=== PATIENT | female | born 1990 | race Caucasian/White ===

== ENCOUNTER 2016-11-17 06:12 | Inpatient (IN) | payer BC ==
[~2016-11-17] VITALS: Ht 167.6 cm; Wt 71.0 kg
[2016-11-17] MEDS ORDERED: LIDOCAINE HCL 1% 50 ML VIAL INFIL PRN (06:30)
[2016-11-17] MEDS ORDERED: LACTATED RINGER'S 1000 ML IV SCH (06:30)
[2016-11-17] MEDS ORDERED: OXYTOCIN 30 UNITS 500ML PREMIX IV ONE (06:30)
[2016-11-17] MEDS ORDERED: NS 500 ML BOLUS IV PRN (06:30)
[2016-11-17] MEDS ORDERED: NS 1000 ML IV PRN (06:30)
[2016-11-17] MEDS ORDERED: LIDOCAINE HCL 1% 50 ML VIAL I-DERMAL PRN (06:30)
[2016-11-17] MEDS ORDERED: OXYTOCIN 30 UNITS/NS 500ML PREMIX IV SCH (06:30)
[2016-11-17] MEDS ORDERED: ONDANSETRON HCL 4 MG/2 ML VIAL IV PRN (06:30)
[2016-11-17] MEDS ORDERED: LACTATED RINGER'S 1000 ML BOLUS IV PRN (06:30)
[2016-11-17] MEDS ORDERED: MINERAL OIL 10 ML VIAL TOPICAL PRN (06:30)
[2016-11-17] MEDS ORDERED: CITRIC ACID-SODIUM CITRATE LIQ 30 ML UDC PO SCH (06:30)
[2016-11-17 07:10] LABS: AUTOMATED NEUTROPHIL # 6.3 TH/MM3 (1.8-7.7); BASOPHIL % 0.3 % (0.0-2.0); EOSINOPHIL % 0.4 % (0.0-4.0); HEMATOCRIT 35.2 % (35.0-46.0); HEMO FLAGS DIFF FINAL; LYMPH % 21.5 % (9.0-44.0); LYMPHOCYTE # 1.9 TH/MM3 (1.0-4.8); MEAN CELL VOLUME 88.2 FL (80.0-100.0); MEAN CORPUSCULAR HEMOGLOBIN 29.6 PG (27.0-34.0); MEAN CORPUSCULAR HGB CONC 33.6 % (32.0-36.0); MONO % 8.1 % (0.0-8.0); NEUT % 69.7 % (16.0-70.0); PLATELET COUNT 236 TH/MM3 (150-450); RED BLOOD COUNT 3.99 MIL/MM3 (4.00-5.30); RED CELL DISTRIBUTION WIDTH 12.6 % (11.6-17.2)
--- NOTE | 2016-11-17 08:04 | HHI.HP ---
HPI Chief Complaint term at 39 weeks with favorable cervix for arom and augmentation as needed Date Seen: Nov 17, 2016 Time Seen: 07:59 Travel History International Travel<30 Days: No Contact w/Intl Traveler<30Days: No Known Affected Area: No History of Present Illness HPI 26 yo mwf at 39 0/7 1-2 cm in office, 50%, soft and -1 well applied. Questionable peripheral cord insertion on ultrasound. No signs of pre eclampsia , no GDM, no PTL Not in labor surveillance reassuring. today /0/arom clear and damir moderately at time of arom. PNC with HOGA and uneventful. Weeks Gestation: 39 Para: 1 : 2 Last Menstrual Period: Feb 18, 2016 Miscarriage: 0 : 0 History Past Medical History Medical History: Denies Significant Hx Past Surgical History Surgical History: No Previous Surgery Family History Family History: Negative Social History Alcohol Use: No Tobacco Use: No Substance Abuse: No Allergies-Medications (Allergen,Severity, Reaction): Coded Allergies: azithromycin (Verified Allergy, Severe, 11/17/16) Review of Systems General / Constitutional: No: Fever, Weight Gain, Chills, Other Eyes: No: Diploplia, Blurred Vision, Visual changes, Pain, Photophobia HENT: No: Headaches, Vertigo, Lightheadedness Cardiovascular: No: Irregular Rhythm, Chest Pain or Discomfort, Palpitations, Tachycardia, Syncope, Varicosities, Edema, Cyanosis Respiratory: No: Cough, Short of Breath, Other Gastrointestinal: No: Nausea, Vomiting, Diarrhea Genitourinary: No: Decreased Urinary Output, Oliguria Musculoskeletal: No: Limited ROM, Weakness, Cramping, Edema, Pain Skin: No Rash, No Itching, No Dryness, No Lumps, No Change in Pigmentation, No Change in Nails, No Alopecia, No Lesions Neurologic: No: Weakness, Dizziness, Syncope, Focal Abnormalities, Coordination Problem, Headache, Slurred Speech, Seizures Psychiatric: No: Depression, Suicidal Ideations, Homicidal Ideation Endocrine: No: Heat Intolerance, Cold Intolerance, Polydipsia, Polyuria, Other Physical Exam Narrative GENERAL: Well-nourished, well-developed patient. SKIN: Warm and dry. HEAD: Normocephalic and atraumatic. EYES: No scleral icterus. No injection or drainage. ENT: No nasal drainage noted. Mucous membranes pink. Airway patent. NECK: Supple, trachea midline. No JVD. CARDIOVASCULAR: Regular rate and rhythm without murmurs, gallops, or rubs. RESPIRATORY: Breath sounds equal bilaterally. No accessory muscle use. BREASTS: Bilateral exam showed no masses , no retractions, no nipple discharge. ABDOMEN/GI: Abdomen soft, non-tender, bowel sounds present, no rebound, no guarding 35 cm (always measures small) 2cm/80-/0/ arom blood tinged well applied pelvis clinically adequate and proven to 7 9 EFW 7 1/2 EXTREMITIES: No cyanosis or edema. BACK: Nontender without obvious deformity. No CVA tenderness. NEUROLOGICAL: Awake and alert. Motor and sensory grossly within normal limits. Five out of 5 muscle strength in all muscle groups. Normal speech. Caprini VTE Risk Assessment Caprini VTE Risk Assessment: No/Low Risk (score <= 1) Caprini Risk Assessment Model Point Value = 1 Point Value = 2 Point Value = 3 Point Value = 5 Age 41-60 Minor surgery BMI > 25 kg/m2 Swollen legs Varicose veins or History of unexplained or recurrent spontaneous Oral contraceptives or hormone replacement Sepsis (< 1 month) Serious lung disease, including pneumonia (< 1 month) Abnormal pulmonary function Acute myocardial infarction Congestive heart failure (< 1 month) History of inflammatory bowel disease Medical patient at bed rest Age 61-74 Arthroscopic surgery Major open surgery (> 45 min) Laparoscopic surgery (> 45 min) Malignancy Confined to bed (> 72 hours) Immobilizing plaster cast Central venous access Age >= 75 History of VTE Family history of VTE Factor V Leiden Prothrombin [id number] Lupus anticoagulant Anticardiolipin antibodies Elevated serum homocysteine Heparin-induced thrombocytopenia Other congenital or acquired thrombophilia Stroke (< 1 month) Elective arthroplasty Hip, pelvis, or leg fracture Acute spinal cord injury (< 1 month) Prophylaxis Regimen Total Risk Factor Score Risk Level Prophylaxis Regimen 0-1 Low Early ambulation 2 Moderate Order ONE of the following: *Sequential Compression Device (SCD) *Heparin 5000 units SQ BID 3-4 Higher Order ONE of the following medications: *Heparin 5000 units SQ TID *Enoxaparin/Lovenox 40 mg SQ daily (WT < 150 kg, CrCl > 30 mL/min) *Enoxaparin/Lovenox 30 mg SQ daily (WT < 150 kg, CrCl > 10-29 mL/min) *Enoxaparin/Lovenox 30 mg SQ BID (WT < 150 kg, CrCl > 30 mL/min) AND/OR *Sequential Compression Device (SCD) 5 or more Highest Order ONE of the following medications: *Heparin 5000 units SQ TID (Preferred with Epidurals) *Enoxaparin/Lovenox 40 mg SQ daily (WT < 150 kg, CrCl > 30 mL/min) *Enoxaparin/Lovenox 30 mg SQ daily (WT < 150 kg, CrCl > 10-29 mL/min) *Enoxaparin/Lovenox 30 mg SQ BID (WT < 150 kg, CrCl > 30 mL/min) AND *Sequential Compression Device (SCD) Data Data Orders Orders Lactated Ringer's 1000 Ml Inj (Lr 1000 M (11/17/16 06:30) Lactated Ringer's 1000 Ml Inj (Lr 1000 M (11/17/16 06:30) Sodium Chlorid 0.9% 500 Ml Inj (Ns 500 M (11/17/16 06:30) Sodium Chlor 0.9% 1000 Ml Inj (Ns 1000 M (11/17/16 06:30) Lidocaine 1% Inj (50 Ml) (Xylocaine 1% I (11/17/16 06:30) Citric Acid-Sodium Citrate Liq (Bicitra (11/17/16 06:30) Ondansetron Inj (Zofran Inj) (11/17/16 06:30) Fentanyl Inj (Fentanyl Inj) (11/17/16 06:30) Fentanyl Inj (Fentanyl Inj) (11/17/16 06:30) Oxytocin 30 Units-500ml Premix (Pitocin (11/17/16 06:30) Lidocaine 1% Inj (50 Ml) (Xylocaine 1% I (11/17/16 06:30) Light Mineral Oil (Muri-Lube Oil) (11/17/16 06:30) ^ Non Stress Test (11/17/16 06:27) Response To Medication .Post New Med Administration, Reaction (11/17/16 06:27) ^ Discontinue Medication (11/17/16 06:27) Oxytocin 30 Units-500ml Premix (Pitocin (11/17/16 06:30) Admit To Inpatient (11/17/16 ) Vital Signs (Adult) .Per protocol (11/17/16 06:28) Activity Oob Ad Shelbi (11/17/16 06:28) Heart (11/17/16 06:28) Amnioinfusion (11/17/16 06:28) Urinary Catheter Management .ONCE (11/17/16 06:28) Diet Liquid (11/17/16 Breakfast) Complete Blood Count With Diff (11/17/16 06:28) Hold Clot (11/17/16 06:28) Abo/Rh Blood Type (11/17/16 06:28) Urinalysis - C+S If Indicated (11/17/16 06:28) Resp Oxygen Non Rebreathe Mask (11/17/16 ) ^ Epidural / Intrathecal Infus (11/17/16 06:28) Labs Laboratory Tests Test 11/17/16 06:45 White Blood Count 9.0 Red Blood Count 3.99 Hemoglobin 11.8 Hematocrit 35.2 Mean Corpuscular Volume 88.2 Mean Corpuscular Hemoglobin 29.6 Mean Corpuscular Hemoglobin Concent 33.6 Red Cell Distribution Width 12.6 Platelet Count 236 Mean Platelet Volume 7.9 Neutrophils (%) (Auto) 69.7 Lymphocytes (%) (Auto) 21.5 Monocytes (%) (Auto) 8.1 Eosinophils (%) (Auto) 0.4 Basophils (%) (Auto) 0.3 Neutrophils # (Auto) 6.3 Lymphocytes # (Auto) 1.9 Monocytes # (Auto) 0.7 Eosinophils # (Auto) 0.0 Basophils # (Auto) 0.0 CBC Comment DIFF FINAL Differential Comment Assessment/Plan Assessment and Plan term IUP with favorable bishops score and irregular ucs now with AROM augment as needed anticipate Lyn Casey MD Nov 17, 2016 08:04
[2016-11-17 12:02] LABS: BLOOD, URINE MOD (NEG); GLUCOSE,URINE NEG (NEG); KETONE, URINE NEG (NEG); NITRITE,URINE NEG (NEG); PH, URINE 7.5 (5.0-8.5); SQUAMOUS EPITHELIAL CELL URINE <1 /hpf (0-5); URINE COLOR LIGHT-YELLOW (YELLW/STRAW)
[2016-11-17 12:06] LABS: COMMENT (UR) CULT NOT INDICATED; CULTURE IF INDICATED CULT NOT INDICATED
[2016-11-17] MEDS ORDERED: MEASLES, MUMPS, RUBELLA VACCINE 0.5 ML VIAL SQ ONE (16:00)
[2016-11-17] MEDS ORDERED: DIPHTH/TETANUS/ACEL PERTUSSIS (BOOSTER) 0.5 ML VIAL/PFS IM ONE (16:00)
--- NOTE | 2016-11-17 19:55 | PD.LABORPN ---
Objective Vital Signs Patient reasonably comfortable with IV fentanyl and rotating hips on birthing ball feeling pressure as baby descends Objective 8/90%/0 CORA Weeks Gestation: 39 Gest Age Assessed Date: Nov 17, 2016 Gest Age Assessed Time: 19:53 Pt started active labor?: Yes Active labor start date: Nov 17, 2016 Active labor start time: 12:00 Medical induction of labor?: Yes Medical induction start date: Nov 17, 2016 Medical induction start time: 07:30 Artificial rupture of membrane: Yes Artificial ROM date: Nov 17, 2016 Artifical ROM time: 08:00 Assessment/Plan Assessment and Plan term IUP induction at 39 weeks questionable peripheral cord insertion proven to 7 1/2 pounds anticipate Lyn Fisher MD Nov 17, 2016 19:55
--- NOTE | 2016-11-17 21:59 | PD.OB.DELI ---
Weeks gestation: 39 Gest age assessed date: Nov 17, 2016 Gest age assessed time: 19:53 Pt started active labor?: Yes Active labor start date: Nov 17, 2016 Active labor start time: 12:00 Medical induction of labor?: Yes Medical induction start date: Nov 17, 2016 Medical induction start time: 07:30 Artificial rupture of membrane: Yes Artificial ROM date: Nov 17, 2016 Artifical ROM time: 08:00 Anesthesia: None Episiotomy: None Vaginal Delivery: Normal Presentation: Occiput anterior Nuchal Cord: None Delayed cord clamping (45 sec): Yes : Male Delivery date: Nov 17, 2016 Delivery time: 21:59 One Minute : 8 Five Minute : 9 Placenta: Spontaneous delivery Laceration: No lacerations Estimated blood loss: 250 Lyn Fisher MD Nov 17, 2016 21:59
[2016-11-17] MEDS ORDERED: BENZOCAINE 20% TOPICAL SPRAY 60 ML CAN TOPICAL PRN (22:00)
[2016-11-17] MEDS ORDERED: WITCH HAZEL 50%/GLYCERIN 12.5% 40 PAD JAR TOPICAL PRN (22:00)
[2016-11-17] MEDS ORDERED: DOCUSATE SODIUM 50 MG/SENNA 8.6 MG TAB PO PRN (22:00)
[2016-11-17] MEDS ORDERED: ONDANSETRON ODT 4 MG TAB PO PRN (22:00)
[2016-11-17] MEDS ORDERED: ALUMINUM/MAGNESIUM/SIMETH 30 ML CUP PO PRN (22:00)
[2016-11-17] MEDS ORDERED: ZOLPIDEM TARTRATE 5 MG TAB PO PRN (22:00)
[2016-11-17] MEDS ORDERED: SODIUM CHLORIDE 0.9% FLUSH 10 ML FLUSH IV FLUSH PRN (22:00)
[2016-11-17] MEDS ORDERED: OXYTOCIN 30 UNITS-500ML PREMIX 500 ML IV SCH (22:00)
[2016-11-17] MEDS ORDERED: ACETAMINOPHEN 325 MG TAB PO PRN (22:00)
[2016-11-18] MEDS: IBUPROFEN 600 MG TAB PO PRN ×3 (08:01→22:52)
--- NOTE | 2016-11-18 08:58 | HHI.OB ---
Subjective Post Day: 1 Remarks s/p uncomplicated , healthy male 7#7oz "Mahesh" no complaints, , no laceration Objective Objective Remarks GENERAL: Well-nourished, well-developed patient. CARDIOVASCULAR: Regular rate and rhythm without murmurs, gallops, or rubs. RESPIRATORY: Breath sounds equal bilaterally. No accessory muscle use. ABDOMEN/GI: Abdomen soft, non-tender. Fundus: Firm, non-tender at umbilicus. GENITOURINARY: Light bleeding. EXTREMITIES: No cyanosis or edema, non-tender, without signs of DVT. Medications and IVs Current Medications Medications (Trade) Dose Ordered Sig/Misa Route Start Time Stop Time Status Last Admin Lactated Ringer's 1,000 ml @ 125 mls/hr Q8H IV 11/17/16 06:30 11/17/16 07:04 Lactated Ringer's 1,000 ml @ 3,000 mls/hr BOLUS PRN IV 11/17/16 06:30 Sodium Chloride 500 ml @ 1,000 mls/hr BOLUS PRN IV 11/17/16 06:30 Sodium Chloride 1,000 ml @ 100 mls/hr Q10H PRN IV 11/17/16 06:30 (Bicitra Liq) 30 ml [employer] PO 11/17/16 06:30 11/20/16 06:29 (Zofran Inj) 4 mg Q6H PRN IV 11/17/16 06:30 (fentaNYL INJ) 50 mcg Q1H PRN IV PUSH 11/17/16 06:30 (fentaNYL INJ) 100 mcg Q1H PRN IV PUSH 11/17/16 06:30 11/17/16 18:52 (Muri-Lube Oil) 10 ml UNSCH PRN TOPICAL 11/17/16 06:30 Oxytocin 500 ml @ 0 mls/hr TITRATE IV 11/17/16 06:30 11/17/16 07:05 (NS Flush) 2 ml BID IV FLUSH 11/18/16 09:00 (NS Flush) 2 ml UNSCH PRN IV FLUSH 11/17/16 22:00 (Tylenol) 650 mg Q4H PRN PO 11/17/16 22:00 (Motrin) 600 mg Q6H PRN PO 11/17/16 22:00 11/18/16 08:01 (Americaine 20% Top Spr) 1 spray Q4H PRN TOPICAL 11/17/16 22:00 (Tucks Pads) 1 applic QID PRN TOPICAL 11/17/16 22:00 (Aixa-Colace) 2 tab Q12H PRN PO 11/17/16 22:00 (Ambien) 5 mg HS PRN PO 11/17/16 22:00 (Mag-Al Plus Susp Liq) 15 ml Q8H PRN PO 11/17/16 22:00 (Zofran Odt) 4 mg Q6H PRN PO 11/17/16 22:00 Assessment/Plan Assessment and Plan PPD#1 routine supportive care infant <12h, not yet cleared for circ, will plan prior to d/c if cleared anticipate d/c to home tmrw Discharge Planning routine, 11/19/16 Griselda Mckeon MD Nov 18, 2016 08:58
[2016-11-18] MEDS ORDERED: SODIUM CHLORIDE 0.9% FLUSH 10 ML FLUSH IV FLUSH SCH (09:00)
[2016-11-19] MEDS ORDERED: IBUP-232 PO (08:21)
--- NOTE | 2016-11-19 08:22 | HHI.DCPOC ---
Discharge Care Plan Diagnosis: (1) (spontaneous vaginal delivery) Your Health Problems Are: Vaginal delivery Report Symptoms to Your Doctor -Temperature above 100.5 degrees -Redness, of incision or excessive or foul smelling drainage -Unusual pain or calf pain -Increased vaginal bleeding -Painful or difficulty urinating -Feelings of extreme sadness or anxiety after 2 weeks Goals to Promote Your Health * To prevent worsening of your condition and complications * To maintain your health at the optimal level Directions to Meet Your Goals Take your medications as prescribed Follow your dietary instruction Follow activity as directed Ensure plenty of rest for recovery Drink fluids for hydration Keep your appointments as scheduled Take your immunizations and boosters as scheduled If your symptoms worsen call your PCP, if no PCP go to Urgent Care Center or Emergency Room Smoking is Dangerous to Your Health. Avoid second hand smoke Call the 24-hour crisis hotline for domestic abuse at Abril Whitten MD Nov 19, 2016 08:22
--- NOTE | 2016-11-19 08:24 | HHI.OB ---
Subjective Post Day: 2 Remarks doing well Objective Objective Remarks GENERAL: Well-nourished, well-developed patient. CARDIOVASCULAR: Regular rate and rhythm without murmurs, gallops, or rubs. RESPIRATORY: Breath sounds equal bilaterally. No accessory muscle use. ABDOMEN/GI: Abdomen soft, non-tender. Fundus: Firm, non-tender at umbilicus. GENITOURINARY: Light bleeding. EXTREMITIES: No cyanosis or edema, non-tender, without signs of DVT. Medications and IVs Current Medications Medications (Trade) Dose Ordered Sig/Misa Route Start Time Stop Time Status Last Admin Lactated Ringer's 1,000 ml @ 125 mls/hr Q8H IV 11/17/16 06:30 11/17/16 07:04 Lactated Ringer's 1,000 ml @ 3,000 mls/hr BOLUS PRN IV 11/17/16 06:30 Sodium Chloride 500 ml @ 1,000 mls/hr BOLUS PRN IV 11/17/16 06:30 Sodium Chloride 1,000 ml @ 100 mls/hr Q10H PRN IV 11/17/16 06:30 (Bicitra Liq) 30 ml [employer] SYSTEM ANALYST PO 11/17/16 06:30 11/20/16 06:29 (Zofran Inj) 4 mg Q6H PRN IV 11/17/16 06:30 (fentaNYL INJ) 50 mcg Q1H PRN IV PUSH 11/17/16 06:30 (fentaNYL INJ) 100 mcg Q1H PRN IV PUSH 11/17/16 06:30 11/17/16 18:52 (Muri-Lube Oil) 10 ml UNSCH PRN TOPICAL 11/17/16 06:30 Oxytocin 500 ml @ 0 mls/hr TITRATE IV 11/17/16 06:30 11/17/16 07:05 (NS Flush) 2 ml BID IV FLUSH 11/18/16 09:00 (NS Flush) 2 ml UNSCH PRN IV FLUSH 11/17/16 22:00 (Tylenol) 650 mg Q4H PRN PO 11/17/16 22:00 (Motrin) 600 mg Q6H PRN PO 11/17/16 22:00 11/18/16 22:52 (Americaine 20% Top Spr) 1 spray Q4H PRN TOPICAL 11/17/16 22:00 (Tucks Pads) 1 applic QID PRN TOPICAL 11/17/16 22:00 (Aixa-Colace) 2 tab Q12H PRN PO 11/17/16 22:00 (Ambien) 5 mg HS PRN PO 11/17/16 22:00 (Mag-Al Plus Susp Liq) 15 ml Q8H PRN PO 11/17/16 22:00 (Zofran Odt) 4 mg Q6H PRN PO 11/17/16 22:00 Assessment/Plan Assessment and Plan PPD#2 routine supportive care circ today anticipate d/c to home tmrw Discharge Planning routine, 11/19/16 Abril Whitetn MD Nov 19, 2016 08:24
[2016-11-19 08:30] VITALS: BP 101/65; PULSE 79; RESP 16; TEMP 97.9
[2016-11-19] MEDS: IBUPROFEN 600 MG TAB PO PRN (09:13)
== END 2016-11-19 16:06 | disposition home or self-care (01) | DRG 775 ==
LOC: H2EB 06:12 → H1EA 11-18
PROVIDERS: ADMIT Obstetrics & Gynecology; ATTEND Obstetrics & Gynecology
PROC: 10E0XZZ Delivery of Products of Conception, External Approach (ICD-10-PCS; principal; 2016-11-17)
DX: O80 Encounter for full-term uncomplicated delivery (principal); Z37.0 Single live birth; Z3A.39 39 weeks gestation of pregnancy
CPT/HCPCS: 59025; 81001; 85025; 86900; 86901; J2590; J3010; J7120

== ENCOUNTER 2017-01-28 08:43 | Observation (INO) | payer BC, OTHER ==
[2017-01-28] VITALS (11 sets, daily range): BP systolic 101–127; BP diastolic 56–77; PULSE 66–93; RESP 16–18; TEMP 98.1–98.2; O2SAT 97–100
[~2017-01-28] VITALS: Ht 167.6 cm; Wt 62.4 kg
[~2017-01-28 08:43] MED LIST: IBUP-232 PO
[2017-01-28] MEDS ORDERED: SODIUM CHLOR 0.9% 1000 ML INJ 1,000 ML IV ONE ×2 (09:00→09:15)
[2017-01-28] MEDS ORDERED: IOHEXOL 350 MG/ML 10 ML VIAL (for RAD DIAG) IVCONTRAST ONE (09:05)
[2017-01-28 09:08] LABS: AUTOMATED NEUTROPHIL # 2.8 TH/MM3 (1.8-7.7); BASOPHIL % 0.6 % (0.0-2.0); EOSINOPHIL % 0.8 % (0.0-4.0); HEMATOCRIT 39.4 % (35.0-46.0); HEMO FLAGS DIFF FINAL; LYMPH % 34.7 % (9.0-44.0); LYMPHOCYTE # 1.6 TH/MM3 (1.0-4.8); MEAN CELL VOLUME 83.4 FL (80.0-100.0); MEAN CORPUSCULAR HEMOGLOBIN 28.2 PG (27.0-34.0); MEAN CORPUSCULAR HGB CONC 33.8 % (32.0-36.0); MONO % 7.6 % (0.0-8.0); NEUT % 56.3 % (16.0-70.0); PLATELET COUNT 265 TH/MM3 (150-450); RED BLOOD COUNT 4.72 MIL/MM3 (4.00-5.30); RED CELL DISTRIBUTION WIDTH 12.7 % (11.6-17.2); WHITE BLOOD COUNT 4.8 TH/MM3 (4.0-11.0)
[2017-01-28] MEDS ORDERED: SODIUM CHLOR 0.9% 1000 ML INJ 300 ML IV ONE ×2 (09:15→09:30)
--- NOTE | 2017-01-28 09:18 | RADRPT ---
EXAM DATE/TIME: 01/28/2017 09:00 [facility] COMPARISON: No previous studies available for comparison. INDICATIONS : Stroke alert. Left facial droop, left arm numbness and right sided headache. RADIATION DOSE: 64.08 CTDIvol (mGy) This report was called by Dr. Mccormick to Dr. Garcia at 0915 hours. MEDICAL HISTORY : None SURGICAL HISTORY : None. ENCOUNTER: Initial ACUITY: 1 day PAIN SCALE: 2/10 LOCATION: Right cranial TECHNIQUE: Multiple contiguous axial images were obtained of the head. Using automated exposure control and adj ustment of the mA and/or kV according to patient size, radiation dose was kept as low as reasonably a chievable to obtain optimal diagnostic quality images. DICOM format image data is available electro nically for review and comparison. FINDINGS: CEREBRUM: The ventricles are normal for age. No evidence of midline shift, mass lesion, hemorrhage or acute in farction. No extra-axial fluid collections are seen. POSTERIOR FOSSA: The cerebellum and brainstem are intact. The 4th ventricle is midline. The cerebellopontine angle i s unremarkable. EXTRACRANIAL: The visualized portion of the orbits is intact. SKULL: The calvaria is intact. No evidence of skull fracture. CONCLUSION: Unremarkable noncontrast CT.. Onel Mccormick MD on January 28, 2017 at 9:13 Board Certified Radiologist. This report was verified electronically.
[2017-01-28 09:20] LABS: APTT (PATIENT) 26.1 SEC (24.3-30.1); BLOOD UREA NITROGEN 15 MG/DL (7-18); CHLORIDE 106 MEQ/L (98-107); GLOMERULAR FILTRATION RATE 102 ML/MIN (>89); PROTHROMBIN TIME - PATIENT 10.6 SEC (9.8-11.6); SODIUM (NA) 142 MEQ/L (136-145)
--- NOTE | 2017-01-28 09:20 | PD ---
HPI Chief Complaint: Stroke Alert Time Seen by Provider: 09:00 Travel History International Travel<30 days: No Contact w/Intl Traveler<30days: No Traveled to known affect area: No History of Present Illness HPI This 27-year-old female says she woke up at 720 this morning. She developed some numbness in the left hand and then the left side of the cheek became numb. The numbness extended up to the forearm. His symptoms then resolved. However the numbness came back and her hand and she developed some headache on the right side. She said she had a similar episode about 12 years ago which was associated with slurred speech. She is not sure what side was not. At that time she was told it was related to migraine headache. She did not suffer from frequent headaches. She is having a right-sided throbbing headache now. She had a baby 2 months ago. [facility] Past Medical History Headaches: Yes ?: Not LMP: 01/2016-pt is breast feeding Social History Alcohol Use: No Tobacco Use: No Allergies-Medications (Allergen,Severity, Reaction): Coded Allergies: azithromycin (Verified Allergy, Severe, 01/28/17) Reported Meds & Prescriptions Reported Meds & Active Scripts Active No Active Prescriptions or Reported Medications Review of Systems General / Constitutional: No: Fever Eyes: Positive: Visual changes, No: Diploplia HENT: Positive: Headaches Cardiovascular: No: Chest Pain or Discomfort, Palpitations Respiratory: No: Cough, Shortness of Breath Gastrointestinal: No: Nausea, Vomiting Genitourinary: No: Urgency, Frequency Musculoskeletal: No: Myalgias, Arthralgias Skin: No Rash Neurologic: Positive: Sensory Disturbance Endocrine: No: Heat Intolerance Hematologic/Lymphatic: No: Easy Bruising Physical Exam Narrative GENERAL: Well-developed female SKIN: Focused skin assessment warm/dry. HEAD: Atraumatic. Normocephalic. EYES: Pupils equal and round. No scleral icterus. No injection or drainage. ENT: No nasal bleeding or discharge. Mucous membranes pink and moist. NECK: Trachea midline. No JVD. CARDIOVASCULAR: Regular rate and rhythm. No murmur appreciated. RESPIRATORY: No accessory muscle use. Clear to auscultation. Breath sounds equal bilaterally. GASTROINTESTINAL: Abdomen soft, non-tender, nondistended. Hepatic and splenic margins not palpable. MUSCULOSKELETAL: No obvious deformities. No clubbing. No cyanosis. No edema. No objective sensory deficit is noted NEUROLOGICAL: Awake and alert. No obvious cranial nerve deficits. Motor grossly within normal limits. Normal speech. PSYCHIATRIC: Appropriate mood and affect; insight and judgment normal. Data Data Last Documented VS Vital Signs Date Time Temp Pulse Resp B/P (MAP) Pulse Ox O2 Delivery O2 Flow Rate FiO2 01/28/17 09:35 73 16 121/77 (92) 100 Room Air 01/28/17 08:55 98.2 Orders Orders Cath For Specimen (01/28/17 09:00) Neuro Checks Q2HX12,Q4H (01/28/17 09:00) Nursing Bedside Swallow Assess .ONCE (01/28/17 09:00) Activity Bed Rest (01/28/17 09:00) Diet Npo (01/28/17 Breakfast) Prothrombin Time / Inr (Pt) (01/28/17 09:00) Act Partial Throm Time (Ptt) (01/28/17 09:00) Complete Blood Count With Diff (01/28/17 09:) Basic Metabolic Panel (Bmp) (01/28/17 09:00) Fibrinogen (01/28/17 09:00) Creatine Kinase (Cpk) (01/28/17 09:00) Troponin I (01/28/17 09:00) Ua Includes Microscopic (01/28/17 09:00) Drug Screen, Random Urine (01/28/17 09:00) Type And Screen (01/28/17 09:00) Ct Brain W/O Iv Contrast(Rout) (01/28/17 ) Cta Brain W Iv Contrast W 3d (01/28/17 09:00) Cta Neck W Iv Contrast W 3d (01/28/17 09:00) Electrocardiogram (01/28/17 ) Beta Hcg (Quant/Titer) (01/28/17 09:00) Consult Neurology (01/28/17 09:00) Sodium Chlor 0.9% 1000 Ml Inj (Ns 1000 M (01/28/17 09:00) Blood Glucose (01/28/17 09:00) Ecg Monitoring (01/28/17 09:00) Iv Access Insert/Monitor (01/28/17 09:00) NPO (01/28/17 09:00) Oximetry (01/28/17 09:00) Oxygen Administration (01/28/17 09:00) Resp Oxygen Jagjit C Titrat 1-4 L (01/28/17 09:00) Sodium Chlor 0.9% 1000 Ml Inj (Ns 1000 M (01/28/17 09:15) Aspirin (Aspirin) (01/28/17 09:30) Head Of Bed (01/28/17 09:20) Aspirin (Aspirin) (01/28/17 09:30) Sodium Chlor 0.9% 1000 Ml Inj (Ns 1000 M (01/28/17 09:30) Iohexol 350 Inj (Omnipaque 350 Inj) (01/28/17 09:05) (Hub Use Only)Inp Phy Cons/Ref (01/28/17 ) Acetaminophen (Tylenol) (01/28/17 10:00) Labs Laboratory Tests Test 01/28/17 09:00 White Blood Count 4.8 TH/MM3 Red Blood Count 4.72 MIL/MM3 Hemoglobin 13.3 GM/DL Hematocrit 39.4 % Mean Corpuscular Volume 83.4 FL Mean Corpuscular Hemoglobin 28.2 PG Mean Corpuscular Hemoglobin Concent 33.8 % Red Cell Distribution Width 12.7 % Platelet Count 265 TH/MM3 Mean Platelet Volume 7.2 FL Neutrophils (%) (Auto) 56.3 % Lymphocytes (%) (Auto) 34.7 % Monocytes (%) (Auto) 7.6 % Eosinophils (%) (Auto) 0.8 % Basophils (%) (Auto) 0.6 % Neutrophils # (Auto) 2.8 TH/MM3 Lymphocytes # (Auto) 1.6 TH/MM3 Monocytes # (Auto) 0.4 TH/MM3 Eosinophils # (Auto) 0.0 TH/MM3 Basophils # (Auto) 0.0 TH/MM3 CBC Comment DIFF FINAL Differential Comment Prothrombin Time 10.6 SEC Prothromb Time International Ratio 1.0 RATIO Activated Partial Thromboplast Time 26.1 SEC Blood Urea Nitrogen 15 MG/DL Creatinine 0.70 MG/DL Random Glucose 93 MG/DL Sodium Level 142 MEQ/L Potassium Level 4.0 MEQ/L Chloride Level 106 MEQ/L Estimat Glomerular Filtration Rate 102 ML/MIN MDM Medical Decision Making Medical Screen Exam Complete: Yes Emergency Medical Condition: Yes Medical Record Reviewed: Yes Differential Diagnosis Differential includes TIA, CVA, complicated migraine Narrative Course On arrival the patient had some persistent paresthesias of the left hand. A stroke alert was called. CT scan has been read as negative. She has been given aspirin and is being kept with head flat. On returning from CT the patient reports that she is having persistent right-sided headache and is also having some photophobia. Her numbness has resolved Scripts No Active Prescriptions or Reported Meds Mohamud Gilbert MD Jan 28, 2017 09:20
[2017-01-28] MEDS ORDERED: ASPIRIN 325 MG TAB PO ONE ×2 (09:30)
[2017-01-28] MEDS ORDERED: ACETAMINOPHEN 325 MG TAB PO ONE (10:00)
--- NOTE | 2017-01-28 10:04 | RADRPT ---
EXAM DATE/TIME: 01/28/2017 09:00 [facility] COMPARISON: No previous studies available for comparison. INDICATIONS : Stroke alert. Left facial droop, left arm numbness and right sided headache. IV CONTRAST: 85 cc Omnipaque 350 (iohexol) IV ; Cumulative dose for multiple exams. RADIATION DOSE: 42.24 CTDIvol (mGy) ; Combined studies MEDICAL HISTORY : None SURGICAL HISTORY : None. ENCOUNTER: Initial ACUITY: 1 day PAIN SCALE: 0/10 LOCATION: neck Elevated flow velocities and ICA/CCA ratios have been found to correlate with increased degrees of vessel stenosis, calculated as percentage of diameter relative to a normal segment of distal ICA/CCA. TECHNIQUE: Volumetric scanning was performed using a multirow detector CT scanner. The data was post processed with a variety of visualization algorithms including full-volume maximum intensity projection, multip lanar sliding thin-slab reformation, curved-planar reformation, and surface-rendering techniques. Us ing automated exposure control and adjustment of the mA and/or kV according to patient size, radiatio n dose was kept as low as reasonably achievable to obtain optimal diagnostic quality images. DICOM f ormat image data is available electronically for review and comparison. FINDINGS: AORTIC ARCH: There is a three-vessel origin of the great vessels from the aorta. No evidence of ostial narrowing. RIGHT CAROTID: The common carotid artery is intact. The carotid bulb has a normal configuration without ulceration o r narrowing. The internal carotid artery lumen is smooth without stenosis. The external carotid quita ry is intact. LEFT CAROTID: The common carotid artery is intact. The carotid bulb has a normal configuration without ulceration or narrowing. The internal carotid artery lumen is smooth without stenosis. The external carotid ar wendi is intact. VERTEBRALS: The vertebral arteries have a symmetric diameter. No stenotic lesions are seen. CONCLUSION: Unremarkable exam. Onel Mccormick MD on January 28, 2017 at 10:00 Board Certified Radiologist. This report was verified electronically.
[2017-01-28 10:14] LABS: BICARBONATE 24.2 MEQ/L (21.0-32.0)
[2017-01-28 10:17] LABS: ANION GAP 9 MEQ/L (5-15)
--- NOTE | 2017-01-28 10:20 | RADRPT ---
EXAM DATE/TIME: 01/28/2017 09:00 [facility] COMPARISON: No previous studies available for comparison. INDICATIONS : Stroke alert. Left facial droop, left arm numbness and right sided headache. IV CONTRAST: 85 cc Omnipaque 350 (iohexol) IV ; Cumulative dose for multiple exams. RADIATION DOSE: 42.24 CTDIvol (mGy) ; Combined studies MEDICAL HISTORY : None SURGICAL HISTORY : None. ENCOUNTER: Initial ACUITY: 1 day PAIN SCALE: 2/10 LOCATION: Right cranial TECHNIQUE: Volumetric scanning was performed using a multi-row detector CT scanner. The data was post processed with a variety of visualization algorithms including full volume maximum intensity projection, multi -planar sliding thin slab reformation, curved planar reformation, and surface rendering techniques. Using automated exposure control and adjustment of the mA and/or kV according to patient size, radiat ion dose was kept as low as reasonably achievable to obtain optimal diagnostic quality images. DICO M format image data is available electronically for review and comparison. FINDINGS: There is excellent visualization of the major intracranial arteries out to the second-order branch ve ssels. There is no evidence for aneurysm, vessel truncation or stenosis, and no evidence for vascula r malformation. CONCLUSION: Normal examination. Cristian Ramirez MD on January 28, 2017 at 10:03 Board Certified Radiologist. This report was verified electronically.
[2017-01-28 10:23] LABS: BETA HCG QUANT LESS THAN 1 MIU/ML (0-5); CREATINE KINASE 97 U/L (26-192)
[2017-01-28] MEDS ORDERED: SODIUM CHLOR 0.9% 1000 ML INJ 1,000 ML IV SCH (10:28)
[2017-01-28] MEDS ORDERED: DEXAMETHASONE SOD PHOS 20 MG/5 ML VIAL IV PUSH ONE (10:30)
[2017-01-28 10:42] LABS: GLUCOSE,URINE NEG (NEG); KETONE, URINE NEG (NEG); NITRITE,URINE NEG (NEG)
[2017-01-28 10:44] LABS: BLOOD, URINE TRACE (NEG); METHOD OF COLLECTION CATH; URINE COLOR STRAW (YELLW/STRAW)
[2017-01-28 10:46] LABS: SQUAMOUS EPITHELIAL CELL URINE 0-5 /hpf (0-5); WBC, URINE 15-19 /hpf (0-5)
--- NOTE | 2017-01-28 10:58 | MB ---
cc: ALLAN BALBUENA DATE OF CONSULTATION: 01/28/2017 REASON FOR CONSULTATION: The patient is a 26-year-old, right-handed woman who just delivered a baby 2 months ago. She had a history headaches about 3 years severe throbbing headaches, and about 4-years of more mild headaches. About 10 years ago she had a episode of a headache with slurred speech and some numbness and tingling. She vaguely remembers. Then this morning she got up was feeling fine then she knows some tingling in the left fifth and fourth digit then that spread over after about 5 minutes, up to her teeth and tongue and then a few minutes after that back down to her forearm, she felt a little bit heavy in the left hand, nothing in the vision change, except she has some essential sensations of tingling, later on in the emergency room over to the left. Initially, however no vision change. No involvement to the leg, then it seemed to pass after about 15 minutes she came to the emergency room because she was worried that it could occur again in fact in the emergency room she again developed some tingling in the face and hand almost similtaneous, and that lasted a few minutes here and then she developed a headache of the right frontal orbital region of gradual onset about a 5-6/10 at this time and she has just a few minutes of cintilations in the left of her vision at that time. She denies any history in her family or herself of any blood clots or miscarriages. SOCIAL HISTORY Nonsmoker or drinker. No drugs. Lives with . FAMILY HISTORY Positive cancer any seizure, stroke. She is breast feeding at this time. NO KNOWN DRUG ALLERGIES. AZITHROMYCIN MEDICATIONS: She is not on any medications. REVIEW OF SYSTEMS No hypertension, diabetes, hypercholesterolemia, myocardial infarction, coronary artery bypass graft, cardiac arrhythmia, renal, hepatic or pulmonary disease, thyroid disease, lupus, ulcer, cancer, seizure, stroke, atrial fibrillation or coumadin. The episode started to improve about 7:20 this morning a stroke alert was called at 09:00 a.m. PHYSICAL EXAMINATION: VITAL SIGNS: On exam sinus rhythm afebrile 85, 16, 121/77. O2 sats 100%. NECK: There are no carotid bruits. HEART: Regular rhythm, I did not detect a murmur. HEAD, EYES, EARS, NOSE, AND THROAT: Pupils are equal, visual marquez are full. Extraocular intact without nystagmus. Face symmetric normal station. Tongue was midline. There is no drift. NEUROLOGIC: She had normal strength upper lower extremities bilaterally, Including the left hand, movements are normal bilaterally. DTRs are 2+ symmetric throughout. Toes downgoing bilaterally. Pinprick is intact throughout his vibratory sense not ataxic on [id number]. Speech is fluent, not aphasic. Neurological exam is normal at this time. Temples nontender. LABORATORY DATA CBC is normal. Basic metabolic profile, troponin negative. HCG is normal. Coags normal. CAT scan of the brain was read as normal. CTA of the [place] of [place] was read as unremarkable. CTA of the neck was read as normal. I have reviewed the films and agreed. IMPRESSION 1. Complicated migraine. TIA or small seizures another consideration I think less likely. 2. Classic for a complicated migraine. 3. Check a hyper coag screen, some other blood work on her. 4. She will get 325 aspirin a day. 5. We will try on 10 mg of Decadron. 6. We will check an electroencephalogram and MRI, if those are negative and an echocardiogram is normal. She could be discharged later today on aspirin a day 325 for 2 weeks and then down to low baby aspirin. She will clear the aspirin with her HALL MANAGER with breast feeding. 7. We will also check a Holter monitor on her, she can go home with that on. I know she has been in sinus rhythm here. MD JOSAFAT Nagy/guy /10:23 AM /10:39 AM
--- NOTE | 2017-01-28 12:28 | HHI.HP ---
HPI Service [facility] Hospitalists Primary Care Physician No Primary Care Physician Admission Diagnosis TIA, COMPLICATED MIGRAINE Chief Complaint: headache, numbness in left face/left UE Travel History International Travel<30 Days: No Contact w/Intl Traveler <30 Da: No Traveled to Known Affected Are: No History of Present Illness This 26-year-old relatively healthy female 2 mos says she woke up at 720 this morning. She developed some numbness in the left hand and then the left side of the cheek became numb. The numbness extended up to the forearm. Her symptoms then resolved. However the numbness came back and her hand and she developed some headache on the right side. She said she had a similar episode about 12 years ago which was associated with slurred speech and was dx with complex migraine at that time. She is not sure what side was not. Previously had significant h/a's for 3-4 yrs, but more recently just occasion mild h/a's over last 4 yrs. She is having a right-sided throbbing headache now. She did sleep on a different pillow last night. No head trauma. No vision change. Numbness is intermittent and involves tongue, left lower face, left UE. No noted strength or coordination deficit. Neuro has seen pt and initial studies are unremarkable. Review of Systems Constitutional: DENIES: Diaphoretic episodes, Fatigue, Fever, Weight gain, Weight loss, Chills, Dizziness, Change in appetite, Night Sweats Endocrine: DENIES: Abnorml menstrual pattern, Heat/cold intolerance, Polydipsia , Polyuria, Polyphagia Eyes: DENIES: Blurred vision, Diplopia, Eye inflammation, Eye pain, Vision loss , Photosensitivity, Double Vision Ears, nose, mouth, throat: DENIES: Tinnitus, Hearing loss, Vertigo, Nasal discharge, Oral lesions, Throat pain, Hoarseness, Ear Pain, Running Nose, Epistaxis, Sinus Pain, Toothache, Odynophagia Respiratory: DENIES: Apneas, Cough, Snoring, Wheezing, Hemoptysis, Sputum production, Shortness of breath Cardiovascular: DENIES: Chest pain, Palpitations, Syncope, Dyspnea on Exertion , PND, Lower Extremity Edema, Orthopnea, Claudication Gastrointestinal: DENIES: Abdominal pain, Black stools, Bloody stools, BRB per rectum, Constipation, Diarrhea, GERD, Nausea, Reflux, Vomiting, Difficulty Swallowing, Anorexia, See HPI Musculoskeletal: DENIES: Joint pain, Muscle aches, Stiffness, Joint Swelling, Back pain, Neck pain Integumentary: DENIES: Abnormal pigmentation, Pruritus, Rash, Nail changes, Breast masses, Breast skin changes, Nipple discharge Hematologic/lymphatic: DENIES: Bruising, Lymphadenopathy Immunologic/allergic: DENIES: Eczema, Urticaria Neurologic: COMPLAINS OF: Headache, Paresthesias, DENIES: Abnormal gait, Localized weakness, Seizures, Speech Problems, Tremor, Poor Balance Psychiatric: DENIES: Anxiety, Confusion, Mood changes, Depression, Hallucinations, Agitation, Suicidal Ideation, Homicidal Ideation, Delusions, History of Bipolar, History of Schizophrenia Past Family Social History Past Medical History Complex migraine (several yrs ago) Past Surgical History Foot surgery at age 13 for fractured navicular bone Reported Medications None regularly Allergies: Coded Allergies: azithromycin (Verified Allergy, Severe, 01/28/17) Family History Mother is healthy Father likely has HTN, but doesn't go to doctor Maternal aunt with breast CA MGF bladder CA No clotting d/o or strokes in family to her knowledge. 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 a/o, pleasant SKIN: No rashes, ecchymoses or lesions. Cool and dry. HEAD: Atraumatic. Normocephalic. No temporal or scalp tenderness. EYES: Pupils equal round and reactive. Extraocular motions intact. No scleral icterus. No injection or drainage. ENT: Nose without bleeding, purulent drainage or septal hematoma. Throat without erythema, tonsillar hypertrophy or exudate. Uvula midline. Airway patent. NECK: Trachea midline. No JVD or lymphadenopathy. Supple, nontender, no meningeal signs. CARDIOVASCULAR: Regular rate and rhythm without murmurs, gallops, or rubs. RESPIRATORY: Clear to auscultation. Breath sounds equal bilaterally. No wheezes , rales, or rhonchi. GASTROINTESTINAL: Abdomen soft, non-tender, nondistended. No hepato-splenomegaly , or palpable masses. No guarding. MUSCULOSKELETAL: Extremities without clubbing, cyanosis, or edema. No joint tenderness, effusion, or edema noted. No calf tenderness. MAEW. NEUROLOGICAL: Awake and alert. Cranial nerves II through XII intact. Five out of 5 muscle strength in all muscle groups. Normal speech. Laboratory Laboratory Tests Test 01/28/17 09:00 01/28/17 10:30 01/28/17 11:00 White Blood Count 4.8 Red Blood Count 4.72 Hemoglobin 13.3 Hematocrit 39.4 Mean Corpuscular Volume 83.4 Mean Corpuscular Hemoglobin 28.2 Mean Corpuscular Hemoglobin Concent 33.8 Red Cell Distribution Width 12.7 Platelet Count 265 Mean Platelet Volume 7.2 Neutrophils (%) (Auto) 56.3 Lymphocytes (%) (Auto) 34.7 Monocytes (%) (Auto) 7.6 Eosinophils (%) (Auto) 0.8 Basophils (%) (Auto) 0.6 Neutrophils # (Auto) 2.8 Lymphocytes # (Auto) 1.6 Monocytes # (Auto) 0.4 Eosinophils # (Auto) 0.0 Basophils # (Auto) 0.0 CBC Comment DIFF FINAL Differential Comment Prothrombin Time 10.6 Prothromb Time International Ratio 1.0 Activated Partial Thromboplast Time 26.1 Fibrinogen 293 Blood Urea Nitrogen 15 Creatinine 0.70 Random Glucose 93 Sodium Level 142 Potassium Level 4.0 Chloride Level 106 Anion Gap 9 Estimat Glomerular Filtration Rate 102 Total Creatine Kinase 97 Troponin I LESS THAN 0.02 Human Chorionic Gonadotropin, Quant LESS THAN 1 Urine Collection Type CATH Urine Color STRAW Urine Turbidity SLIGHTY CLOUDY Urine pH 6.0 Urine Specific [place] GREATER THAN 1.035 Urine Protein NEG Urine Glucose (UA) NEG Urine Ketones NEG Urine Occult Blood TRACE Urine Nitrite NEG Urine Bilirubin NEG Urine Leukocyte Esterase MOD Urine WBC 15-19 Urine Squamous Epithelial Cells 0-5 Urine Opiates Screen NEG Urine Barbiturates Screen NEG Urine Amphetamines Screen NEG Urine Benzodiazepines Screen NEG Urine Cocaine Screen NEG Urine Cannabinoids Screen NEG Erythrocyte Sedimentation Rate 10 Aspartate Amino Transf (AST/SGOT) 29 Alanine Aminotransferase (ALT/SGPT) 56 Thyroid Stimulating Hormone 3rd Gen 0.109 Result Diagram: 01/28/1789901/28/17899 Imaging Last 72 hours Impressions Neck CTA 01/28/17899 Signed Impressions: Service Date/Time: December 09:00 - CONCLUSION: Unremarkable exam. Onel Mccormick MD Head CTA 01/28/17899 Signed Impressions: Service Date/Time: December 09:00 - CONCLUSION: Normal examination. Cristian Ramirez MD Head CT 01/28/17 0000 Signed Impressions: Service Date/Time: December 09:00 - CONCLUSION: Unremarkable noncontrast CT.. Onel Mccormick MD [place] VTE Risk Assessment Caprini VTE Risk Assessment: No/Low Risk (score <= 1) Caprini Risk Assessment Model Point Value = 1 Point Value = 2 Point Value = 3 Point Value = 5 Age 41-60 Minor surgery BMI > 25 kg/m2 Swollen legs Varicose veins or History of unexplained or recurrent spontaneous Oral contraceptives or hormone replacement Sepsis (< 1 month) Serious lung disease, including pneumonia (< 1 month) Abnormal pulmonary function Acute myocardial infarction Congestive heart failure (< 1 month) History of inflammatory bowel disease Medical patient at bed rest Age 61-74 Arthroscopic surgery Major open surgery (> 45 min) Laparoscopic surgery (> 45 min) Malignancy Confined to bed (> 72 hours) Immobilizing plaster cast Central venous access Age >= 75 History of VTE Family history of VTE Factor V Leiden Prothrombin [id number] Lupus anticoagulant Anticardiolipin antibodies Elevated serum homocysteine Heparin-induced thrombocytopenia Other congenital or acquired thrombophilia Stroke (< 1 month) Elective arthroplasty Hip, pelvis, or leg fracture Acute spinal cord injury (< 1 month) Prophylaxis Regimen Total Risk Factor Score Risk Level Prophylaxis Regimen 0-1 Low Early ambulation 2 Moderate Order ONE of the following: *Sequential Compression Device (SCD) *Heparin 5000 units SQ BID 3-4 Higher Order ONE of the following medications: *Heparin 5000 units SQ TID *Enoxaparin/Lovenox 40 mg SQ daily (WT < 150 kg, CrCl > 30 mL/min) *Enoxaparin/Lovenox 30 mg SQ daily (WT < 150 kg, CrCl > 10-29 mL/min) *Enoxaparin/Lovenox 30 mg SQ BID (WT < 150 kg, CrCl > 30 mL/min) AND/OR *Sequential Compression Device (SCD) 5 or more Highest Order ONE of the following medications: *Heparin 5000 units SQ TID (Preferred with Epidurals) *Enoxaparin/Lovenox 40 mg SQ daily (WT < 150 kg, CrCl > 30 mL/min) *Enoxaparin/Lovenox 30 mg SQ daily (WT < 150 kg, CrCl > 10-29 mL/min) *Enoxaparin/Lovenox 30 mg SQ BID (WT < 150 kg, CrCl > 30 mL/min) AND *Sequential Compression Device (SCD) Assessment and Plan Problem List: (1) Paresthesia ICD Codes: R20.2 - Paresthesia of skin Status: Acute Plan: Neuro has seen pt. Workup ongoing and unremarkable thus far. 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 mgmt per Neuro. (2) Cephalgia ICD Codes: R51 - Headache Status: Acute Plan: Recurrent issue with reported hx of Migraines. mgmt per neurology. Code Status full Discussed Condition With Pt, her and ER provider Mahesh Jewell MD PhD Jan 28, 2017 12:28
[2017-01-28] MEDS ORDERED: GADODIAMIDE PF 287 MG/ML 5 ML VIAL (for RAD MRI) IVCONTRAST ONE (12:31)
[2017-01-28 13:49] LABS: RHEUMATOID FACTOR TRIGGER LESS THAN 10.0 IU/ML (0.0-14.9)
[2017-01-28 14:15] LABS: FREE T4 1.31 NG/DL (0.76-1.46); HDL CHOLESTEROL 66.5 MG/DL (40.0-60.0)
--- NOTE | 2017-01-28 14:19 | RADRPT ---
EXAM DATE/TIME: 01/28/2017 12:41 [facility] COMPARISON: No previous studies available for comparison. INDICATIONS : CVA. Left hand numbness and tingling. Left sided facial numbness and headache. CONTRAST: 12 cc Omniscan (gadodiamide) IV MEDICAL HISTORY : None. SURGICAL HISTORY : Left ankle. ENCOUNTER: Initial ACUITY: 1 day PAIN SCORE: 0/10 LOCATION: Head. TECHNIQUE: Multiplanar, multisequence MRI of the brain was performed both prior to and following the administrat ion of paramagnetic contrast. FINDINGS: CEREBRUM: The ventricles are normal for age. No evidence of midline shift, mass lesion, hemorrhage or acute in farction. No extraaxial fluid collections are seen. The pituitary gland and suprasellar cistern are normal in configuration. WHITE MATTER: No significant signal abnormalities are seen in the white matter. POSTERIOR FOSSA: The cerebellum and brainstem are intact. The 4th ventricle is midline. The cerebellopontine angle is unremarkable. The cerebellar tonsils are normal in position. DIFFUSION IMAGING: No focal areas of restricted diffusion are seen. No evidence of acute infarction. EXTRACRANIAL: The visualized portions of the orbits and paranasal sinuses are unremarkable. POST-CONTRAST: No abnormal areas of parenchymal or dural enhancement. No evidence of blood-brain barrier breakdown. CONCLUSION: 1. Normal examination. Chilango Oakes MD on January 28, 2017 at 14:12 Board Certified Radiologist. This report was verified electronically.
--- NOTE | 2017-01-28 21:56 | MG ---
cc: VAMSHI DICKINSON MD Lab No: [id number] Date: 01/28/17 Age: 26 Sex: F Race: DATE OF 03/06/1997 HISTORY A 26-year-old history of numbness, headache, paresthesias, tingling. DESCRIPTION 7-9 Hz activity, 20-40 microvolts. Fast frequency artifact in the frontal channels. Background slowing transition into drowsy state followed by stage II sleep with the appearance of spindles, K complexes. Driving with photic stimulation. Single lead EKG showing sinus rhythm. INTERPRETATION Normal awake, sleep EEG. Clinical correlation. Vamshi Dickinson MD MG/EO /9:19 PM /9:44 PM
[2017-01-28] MEDS ORDERED: ACETAMINOPHEN 325 MG TAB PO PRN (23:45)
[2017-01-29] VITALS: BP 105/58; PULSE 87; RESP 16; TEMP 98.1; O2SAT 99
[2017-01-29] MEDS ORDERED: ACETAMIN 325 MG/BUTALBITAL 50 MG/CAFFEINE 40 MG TAB PO ONE
[2017-01-29 04:00] VITALS: BP 103/56; PULSE 86; RESP 16; TEMP 98.1; O2SAT 98
--- NOTE | 2017-01-29 07:34 | HHI.PR ---
Subjective Remarks Overall feeling better. No more paresthesias or numbness since about noon yesterday per her report. She has had intermittent headache generally on the right frontotemporal area. This resolved last night but is starting a bit again this morning but not severe. Objective Vitals Vital Signs Date Time Temp Pulse Resp B/P (MAP) Pulse Ox O2 Delivery O2 Flow Rate FiO2 01/29/17 04:00 98.1 86 16 103/56 (72) 98 01/29/17 00:00 98.1 87 16 105/58 (74) 99 01/28/17 23:00 66 01/28/17 21:00 98 21 01/28/17 20:00 98.1 93 18 101/56 (71) 98 01/28/17 20:00 69 01/28/17 16:00 98.2 91 16 105/56 (72) 97 01/28/17 14:29 99 21 01/28/17 13:30 98.2 75 16 113/70 (84) 98 01/28/17 13:20 73 16 110/67 (81) 99 01/28/17 13:00 70 16 100 Room Air 01/28/17 11:30 70 16 125/73 (90) 100 Room Air 01/28/17 11:15 16 01/28/17 11:00 74 99 Room Air 01/28/17 10:25 72 16 120/69 (86) 01/28/17 09:35 73 16 121/77 (92) 100 Room Air 01/28/17 09:00 88 16 100 Room Air 01/28/17 08:55 100 Room Air 01/28/17 08:55 98.2 85 16 127/75 (92) 100 01/28/17 08:55 16 100 Room Air GENERAL: Awake and alert, no acute distress. Pleasant and cooperative. SKIN: Warm and dry. HEAD: Normocephalic. EYES: No scleral icterus. No injection or drainage. NECK: Supple, trachea midline. No JVD or lymphadenopathy. CARDIOVASCULAR: Regular rate and rhythm without murmurs, gallops, or rubs. RESPIRATORY: Breath sounds equal bilaterally. No accessory muscle use. GASTROINTESTINAL: Abdomen soft, non-tender, nondistended. MUSCULOSKELETAL: No cyanosis, or edema. NEURO: Moves all extremities well. Drank 5 out of 54. No focal deficits. Result Diagram: 01/28/1789901/28/17899 Imaging Last 72 hours Impressions Neck CTA 01/28/17899 Signed Impressions: Service Date/Time: December 09:00 - CONCLUSION: Unremarkable exam. Onel Mccormick MD Head CTA 01/28/17899 Signed Impressions: Service Date/Time: December 09:00 - CONCLUSION: Normal examination. Cristian Ramirez MD Head CT 01/28/17 0000 Signed Impressions: Service Date/Time: December 09:00 - CONCLUSION: Unremarkable noncontrast CT.. Onel Mccormick MD Urinary Catheter: No Vascular Central Line Catheter: No A/P Problem List: (1) Paresthesia ICD Codes: R20.2 - Paresthesia of skin Status: Acute Plan: Neuro has seen pt. Workup ongoing and unremarkable thus far. 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 Imaging and EEG normal. Lab work unrevealing. We'll treat headache and hopefully discharge home later today. (2) Cephalgia ICD Codes: R51 - Headache Status: Acute Plan: Recurrent issue with reported hx of Migraines. mgmt per neurology. Discharge Planning Plan discharge home later today. Mahesh Jewell MD PhD Jan 29, 2017 07:34
[2017-01-29 08:00] VITALS: BP 114/67; PULSE 70; RESP 15; TEMP 97.6; O2SAT 100
[2017-01-29] MEDS ORDERED: ASPIRIN EC 325 MG TABEC PO SCH (09:00)
--- NOTE | 2017-01-29 09:04 | HHI.PR ---
Subjective Remarks sr still mild robison Objective Vital Signs Date Time Temp Pulse Resp B/P (MAP) Pulse Ox O2 Delivery O2 Flow Rate FiO2 01/29/17 04:00 98.1 86 16 103/56 (72) 98 01/29/17 00:00 98.1 87 16 105/58 (74) 99 01/28/17 23:00 66 01/28/17 21:00 98 21 01/28/17 20:00 98.1 93 18 101/56 (71) 98 01/28/17 20:00 69 01/28/17 16:00 98.2 91 16 105/56 (72) 97 01/28/17 14:29 99 21 01/28/17 13:30 98.2 75 16 113/70 (84) 98 01/28/17 13:20 73 16 110/67 (81) 99 01/28/17 13:00 70 16 100 Room Air 01/28/17 11:30 70 16 125/73 (90) 100 Room Air 01/28/17 11:15 16 01/28/17 11:00 74 99 Room Air 01/28/17 10:25 72 16 120/69 (86) 01/28/17 09:35 73 16 121/77 (92) 100 Room Air I/O 01/28/17 01/28/17 01/28/17 01/29/17 01/29/17 01/29/17 07:00 15:00 23:00 07:00 15:00 23:00 Intake Total 300 ml 462 ml 380 ml Balance 300 ml 462 ml 380 ml Intake Oral 462 ml 380 ml IV Total 300 ml # Voids 4 2 # Bowel Movements 0 0 Result Diagram: 01/28/17 0900 01/28/17 0900 Objective Remarks vff 5/5 nl speech ffm nle left Assessment and Plan Assessment and Plan ip classic for complicated migrain asa 325 for two weeks then 81mg a day try fioricet this am mri neg ctax2 nl echoa nd and holter pend hyper coag pend esr nl ldl nl eeg pend plan dc on asa if echo neg and holter and eeg done and fu office i am electing not to do nunu as spell classic for complicated migraine and even if pfo seen would not close on just two of these spells in 10 yrs unless something major seen on regular echo Clint Moreau MD Jan 29, 2017 09:04
[2017-01-29 11:29] LABS: ANA SCREEN POS (NEG)
[2017-01-29 12:00] VITALS: BP 98/55; PULSE 79; RESP 16; TEMP 97.7; O2SAT 98
--- NOTE | 2017-01-29 14:07 | HHI.PR ---
Addendum to Inpatient Note Addendum Reason: Additional Documentation Additional Information Re-evaluated pt. She is doing well and tylenol relieved headache. No more paresthesias. Plan to d/c home after Holter recording complete. counseled her on migraine triggers and the use of Riboflavin 200mg/d for possible prophylaxis. Mahesh Jewell MD PhD Jan 29, 2017 14:07
[2017-01-29] MEDS ORDERED: ACET325T15 PO (14:09)
--- NOTE | 2017-01-29 15:23 | ECHRPT ---
Indication: cva/tia CONCLUSIONS Normal left ventricular size. [id number] mitral valve regurgitation. There is trace tricuspid valve regurgitation. The estimated pulmonary arterial pressure is 30.1 mmHg. BP: / HR: Rhythm: MEASUREMENTS (Male / Female) Normal Values Technical Quality:Fair 2D ECHO LV Diastolic Diameter PLAX 4.2 cm 4.2 - 5.9 / 3.9 - 5.3 cm LV Systolic Diameter PLAX 3.1 cm IVS Diastolic Thickness 0.9 cm 0.6 - 1.0 / 0.6 - 0.9 cm LVPW Diastolic Thickness 0.6 cm 0.6 - 1.0 / 0.6 - 0.9 cm LV Relative Wall Thickness 0.4 RV Internal Dim ED PLAX 2.3 cm M-MODE Aortic Root Diameter MM 2.8 cm LA Systolic Diameter MM 2.4 cm LA Ao Ratio MM 0.9 AV Cusp Separation MM 1.9 cm DOPPLER Mitral E Point Velocity 65.2 cm/s Mitral A Point Velocity 42.9 cm/s Mitral E to A Ratio 1.5 LV E' Lateral Velocity 15.7 cm/s Mitral E to LV E' Lateral Ratio 4.2 LV E' Septal Velocity 13.3 cm/s Mitral E to LV E' Septal Ratio 4.9 TR Peak Velocity 224.0 cm/s TR Peak Gradient 20.1 mmHg Right Atrial Pressure 10.0 mmHg Pulmonary Artery Systolic Pressu 30.1 mmHg Right Ventricular Systolic Press 30.1 mmHg FINDINGS LEFT VENTRICLE The left ventricular systolic function is normal with an estimated ejection fraction in the range of 60-65%. Normal left ventricular size. RIGHT VENTRICLE Normal right ventricular size and systolic function. LEFT ATRIUM The left atrial size is normal. RIGHT ATRIUM The right atrial size is normal. ATRIAL SEPTUM Normal atrial septal thickness without atrial level shunting by limited color doppler interrogation. AORTA The aortic root and proximal ascending aorta are normal in size on limited imaging. MITRAL VALVE [id number]-ly-gvps mitral valve regurgitation. Structurally normal mitral valve. AORTIC VALVE Trileaflet aortic valve. No aortic valve stenosis or regurgitation. TRICUSPID VALVE Structurally normal tricuspid valve. There is trace tricuspid valve regurgitation. The estimated pulmonary arterial pressure is 30.1 mmHg. PULMONARY VALVE No pulmonary valve regurgitation or stenosis. VESSELS The inferior vena cava is normal in size. PERICARDIUM No pericardial effusion. Matty Robertson MD (Electronically Signed) Final Date:29 January 2017 15:21
--- NOTE | 2017-01-29 16:02 | EKG ---
Date Performed: 01/28/2017 Time Performed: 08:56:23 PTAGE: 26 years EKG: Sinus rhythm POSSIBLE RIGHT VENTRICULAR CONDUCTION DELAY BORDERLINE ECG NO PREVIOUS TRACING DOCTOR: Tracie Ledesma Interpretating Date/Time 01/29/2017 16:01:05
[2017-01-31 03:50] LABS: THROMBIN TIME FOR LA ND sec (13-19); VITAMIN B6 4.7 ng/mL (2.1-21.7)
--- NOTE | 2017-01-31 23:49 | HM ---
Date Performed: 01/28/2017 Time Performed: 15:50:00 HOOKUP DATE: 01/28/17 03:50:00 PM [facility] ANALYSIS START TIME: 01/28/2017 3:55:00 PM ANALYSIS END TIME: 01/29/2017 2:54:35 PM PATIENT AGE: 26 PATIENT HEIGHT PATIENT WEIGHT DRUG LIST PATIENT DIAGNOSIS: NEURO SYMPTOMS TEST NARRATIVE: The patient's average heart rate was 79 BPM. No episodes of tachycardia wer e noted. No episodes of bradycardia were noted. No pauses exceeding 2.0 seconds were noted. No ventricular ectopics were noted. No supraventricular ectopics were noted. No episodes of S T depression (defined as -1.0 mm or more) were noted in channel 1. No episodes of ST depression (def ined as -1.0 mm or more) were noted in channel 2. No episodes of ST depression (defined as -1.0 mm o r more) were noted in channel 3. TEST INTERPRETATION: 1. Predominant underlying rhythm is Sinus rhythm 2. No supraventricular or ventricular tachyarrythmias noted 3. NO pauses > 2 sec noted 4. No cardia c symptoms noted during the recorded time interva Signed by : Demetrius Espinosa
[2017-02-01 11:23] LABS: ALBUMIN SPE 4.97 GM/DL (3.50-5.00); ALPHA 1 GLOBULIN 0.23 GM/DL (0.11-0.29); ALPHA 2 GLOBULIN 0.82 GM/DL (0.22-1.00)
[2017-02-01 11:24] LABS: BETA GLOBULINS (SPE) 0.93 GM/DL (0.53-1.03)
== END 2017-01-29 15:19 | disposition home or self-care (01) ==
LOC: PHED 08:43 → PHEDA 11:01 → PH3A 13:24
PROVIDERS: ADMIT Family Medicine; ATTEND Family Medicine
DX: R20.2 Paresthesia of skin (principal); G43.109 Migraine with aura, not intractable, without status migrainosus
CPT/HCPCS: 70450; 70496; 70498; 70553; 80048; 80061; 80307; 81001; 81240; 81241; 81291; 82550; 82607; 82746; 83921; 84165; 84207; 84425; 84439; 84443; 84450; 84460; 84484; 84702; 85025; 85240; 85300; 85303; 85306; 85384; 85610; 85613; 85652; 85730; 86038; 86039; 86140; 86147; 86430; 86592; 86850; 86900; 86901; 93005; 93225; 93226; 93306; 95819; 96361; 96374; 99285; A9579; G0378; J1100; J7030; Q9967

== ENCOUNTER 2017-07-23 20:50 | Emergency (ER) | payer OTHER ==
[~2017-07-23] VITALS: Ht 170.2 cm; Wt 60.1 kg
[~2017-07-23 20:50] MED LIST changes: +ACET325T15 PO; -IBUP-232 PO
[2017-07-23 20:53] VITALS: BP 117/55; PULSE 112; RESP 16; TEMP 97.8; O2SAT 99
[2017-07-23] MEDS ORDERED: SODIUM CHLOR 0.9% 1000 ML INJ 1,000 ML IV ONE (21:36)
--- NOTE | 2017-07-23 21:41 | PD ---
HPI Chief Complaint: GI Complaint Time Seen by Provider: 21:36 Travel History International Travel<30 days: No Contact w/Intl Traveler<30days: No Traveled to known affect area: No History of Present Illness HPI 27-year-old female presents to the emergency department by private transportation the care of family for evaluation of nausea, vomiting, and diarrhea times 3 hours. Patient states she has not felt well since Wednesday and then today started having nausea vomiting and diarrhea. Patient denies any fever has had subjective chills denies any decreased urine output. Patient has had no hematemesis coffee-ground emesis or bilious emesis also no bloody or tarry or melanotic stool. Patient states she has had 2 large watery stools and 4 episodes of vomiting. Patient was seen at [facility] today given prescription for Zofran ODT but vomited shortly after taking this and has not had any blood work done as they reportedly could not get IV access. Patient presents now for complaint of generalized weakness. Patient states her 8-month- old child has had diarrhea. No other family members with similar symptoms. Patient denies any well water ingestion foreign travel or dietary indiscretion. Patient's last menstrual period is now. Patient has noted some epigastric and periumbilical tenderness. Patient is unable to identify exacerbating or alleviating factors. Patient rates discomfort 3/10 intensity. PFSH Past Medical History Narrative Medical Headaches, left ankle surgery; no tobacco use no alcohol use; nursing notes reviewed Diminished Hearing: No Headaches: Yes Neurologic: Yes (hx of tingling and numbness hands/with slurred speech approx 12 yrs ago) Psychiatric: No Tetanus Vaccination: Unknown Influenza Vaccination: No ?: Not LMP: NOW 07/23/17 Past Surgical History Other Surgery: Yes (left ankle) Social History Alcohol Use: No Tobacco Use: No (hx of use teens years ) Substance Use: No Allergies-Medications (Allergen,Severity, Reaction): Coded Allergies: azithromycin (Verified Allergy, Severe, 07/23/17) Reported Meds & Prescriptions Reported Meds & Active Scripts Active No Active Prescriptions or Reported Medications Zofran Review of Systems Except as stated in HPI: all other systems reviewed are Neg General / Constitutional: Positive: Chills, No: Fever HENT: No: Congestion Cardiovascular: No: Chest Pain or Discomfort Respiratory: No: Shortness of Breath Gastrointestinal: Positive: Nausea, Vomiting, Diarrhea, Abdominal Pain Genitourinary: No: Dysuria, Flank Pain Musculoskeletal: No: Myalgias, Arthralgias Skin: No Rash Neurologic: No: Weakness, Dizziness Psychiatric: No: Anxiety Hematologic/Lymphatic: No: Lymph Node Enlargement Physical Exam Narrative GENERAL: Well-developed well-nourished female no acute distress no respiratory distress SKIN: Warm and dry. HEAD: Normocephalic. EYES: No scleral icterus. No injection or drainage. NECK: Supple, trachea midline. No JVD or lymphadenopathy. CARDIOVASCULAR: Regular rate and rhythm without murmurs, gallops, or rubs. RESPIRATORY: Breath sounds equal bilaterally. No accessory muscle use. GASTROINTESTINAL: Abdomen soft, non-tender, nondistended. MUSCULOSKELETAL: No cyanosis, or edema. BACK: Nontender without obvious deformity. No CVA tenderness. Data Data Last Documented VS Vital Signs Date Time Temp Pulse Resp B/P (MAP) Pulse Ox O2 Delivery O2 Flow Rate FiO2 07/23/17 23:47 92 18 121/62 (81) 100 Room Air 07/23/17 20:53 97.8 Orders Orders Complete Blood Count With Diff (07/23/17 21:36) Comprehensive Metabolic Panel (07/23/17 21:36) Urinalysis - C+S If Indicated (07/23/17 21:36) Lipase (07/23/17 21:36) Iv Access Insert/Monitor (07/23/17 21:36) Ecg Monitoring (07/23/17 21:36) Oximetry (07/23/17 21:36) Ondansetron Inj (Zofran Inj) (07/23/17 21:45) Sodium Chlor 0.9% 1000 Ml Inj (Ns 1000 M (07/23/17 21:36) Sodium Chloride 0.9% Flush (Ns Flush) (07/23/17 21:45) Ed Urine Pregnancytest Poc (07/23/17 21:36) Sodium Chlorid 0.9% 500 Ml Inj (Ns 500 M (07/23/17 23:45) Metoclopramide Inj (Reglan Inj) (07/24/17 00:15) Labs Laboratory Tests Test 07/23/17 22:25 07/23/17 23:00 Urine Color YELLOW Urine Turbidity CLEAR Urine pH 5.5 Urine Specific [place] GREATER/EQUAL 1.030 Urine Protein NEG mg/dL Urine Glucose (UA) NEG mg/dL Urine Ketones 15 mg/dL Urine Occult Blood MOD Urine Nitrite NEG Urine Bilirubin NEG Urine Urobilinogen 0.2 MG/DL Urine Leukocyte Esterase NEG Urine RBC 0-3 /hpf Urine WBC 3-5 /hpf Urine Squamous Epithelial Cells 0-5 /hpf Urine Mucus MOD /lpf Microscopic Urinalysis Comment CULT NOT INDICATED White Blood Count 14.1 TH/MM3 Red Blood Count 5.23 MIL/MM3 Hemoglobin 15.3 GM/DL Hematocrit 44.9 % Mean Corpuscular Volume 85.9 FL Mean Corpuscular Hemoglobin 29.3 PG Mean Corpuscular Hemoglobin Concent 34.1 % Red Cell Distribution Width 13.9 % Platelet Count 284 TH/MM3 Mean Platelet Volume 7.7 FL Neutrophils (%) (Auto) 89.7 % Lymphocytes (%) (Auto) 4.4 % Monocytes (%) (Auto) 5.0 % Eosinophils (%) (Auto) 0.2 % Basophils (%) (Auto) 0.7 % Neutrophils # (Auto) 12.7 TH/MM3 Lymphocytes # (Auto) 0.6 TH/MM3 Monocytes # (Auto) 0.7 TH/MM3 Eosinophils # (Auto) 0.0 TH/MM3 Basophils # (Auto) 0.1 TH/MM3 CBC Comment DIFF FINAL Differential Comment Blood Urea Nitrogen 14 MG/DL Creatinine 0.67 MG/DL Random Glucose 93 MG/DL Total Protein 8.7 GM/DL Albumin 4.5 GM/DL Calcium Level 9.8 MG/DL Alkaline Phosphatase 102 U/L Aspartate Amino Transf (AST/SGOT) 15 U/L Alanine Aminotransferase (ALT/SGPT) 17 U/L Total Bilirubin 0.6 MG/DL Sodium Level 141 MEQ/L Potassium Level 4.0 MEQ/L Chloride Level 109 MEQ/L Carbon Dioxide Level 24.5 MEQ/L Anion Gap 8 MEQ/L Estimat Glomerular Filtration Rate 106 ML/MIN Lipase 172 U/L [facility] Medical Decision Making Medical Screen Exam Complete: Yes Emergency Medical Condition: Yes Medical Record Reviewed: Yes Interpretation(s) CBC & BMP Diagram 07/23/17 23:00 Total Protein 8.7 H, Albumin 4.5, Calcium Level 9.8, Alkaline Phosphatase 102, Aspartate Amino Transf (AST/SGOT) 15, Alanine Aminotransferase (ALT/SGPT) 17, Total Bilirubin 0.6 Vital Signs Date Time Temp Pulse Resp B/P (MAP) Pulse Ox O2 Delivery O2 Flow Rate FiO2 07/23/17 23:47 92 18 121/62 (81) 100 Room Air 07/23/17 21:44 18 99 07/23/17 20:53 97.8 112 16 117/55 (75) 99 Differential Diagnosis Vomiting, gastroenteritis, foodborne illness, gastritis, pancreatitis, biliary colic, electrolyte disturbance Narrative Course IV access obtained specimens collected and sent for resulting patient over bolus of normal saline 1 L as well as Zofran 4 mg IV At midnight patient reassessed has some mild nausea denies any abdominal pain and has had no diarrhea. Patient states she feels improved but still due to persistent nausea states that attempting oral hydration increases her nausea. Patient given Reglan 10 mg IV Patient does have a white count of 14,000 but nontender soft belly no guarding no rebound and no peritoneal irritation suspect related to stress demargination , dehydration, and gastroenteritis Sepsis Criteria SIRS Criteria (2 or more): Heart rate over 90, WBC > 96374, < 4000 or > 10% bands Diagnosis Primary Impression: Gastroenteritis Referrals: Primary Care Physician 3 days Patient Instructions: General Instructions Additional Instructions: Increase fluid hydration Follow clear liquid diet for next 12-24 hours advancing diet to brat/bland diet and regular diet Take medication as prescribed Zofran every 6 hours as needed for nausea and/or vomiting and Phenergan 25 mg every 6-8 hours for breakthrough nausea vomiting Follow-up with primary care provider Monitor temperature for fever take acetaminophen/Tylenol every 4 hours for fever 100.4F or greater and/or ibuprofen/Advil/Motrin every 6-8 hours as needed for fever 100.4F or greater Return to the emergency department for vomiting pain fever or any concerns Med/Other Pt SpecificInfo: Prescription(s) given Scripts Promethazine (Phenergan) 25 Mg Tablet 25 MG PO Q6H Y for NAUSEA OR VOMITING, #6 TAB 0 Refills Prov: Aye Chan MD 07/24/17 Disposition: 01 DISCHARGE HOME Condition: Stable Aye Chan MD July 23, 2017 21:41
[2017-07-23 21:44] VITALS: RESP 18; O2SAT 99
[2017-07-23] MEDS ORDERED: ONDANSETRON HCL 4 MG/2 ML VIAL IV PUSH ONE (21:45)
[2017-07-23] MEDS ORDERED: SODIUM CHLORIDE 0.9% FLUSH 10 ML FLUSH IVF PRN (21:45)
[2017-07-23 22:39] LABS: BILIRUBIN, URINE NEG (NEG); BLOOD, URINE MOD (NEG); GLUCOSE,URINE NEG (NEG); KETONE, URINE 15 mg/dL (NEG); NITRITE,URINE NEG (NEG); PH, URINE 5.5 (5.0-8.5); URINE COLOR YELLOW (YELLW/STRAW); URINE LEUKOCYTE ESTERASE NEG (NEG)
[2017-07-23 22:46] LABS: MUCUS URINE MOD /lpf (OCC)
[2017-07-23 22:47] LABS: RBC, URINE 0-3 /hpf (0-3); SQUAMOUS EPITHELIAL CELL URINE 0-5 /hpf (0-5)
[2017-07-23 23:19] LABS: AUTOMATED NEUTROPHIL # 12.7 TH/MM3 (1.8-7.7); BASOPHIL # 0.1 TH/MM3 (0-0.2); BASOPHIL % 0.7 % (0.0-2.0); EOSINOPHIL % 0.2 % (0.0-4.0); HEMATOCRIT 44.9 % (35.0-46.0); HEMOGLOBIN 15.3 GM/DL (11.6-15.3); LYMPH % 4.4 % (9.0-44.0); LYMPHOCYTE # 0.6 TH/MM3 (1.0-4.8); MEAN CELL VOLUME 85.9 FL (80.0-100.0); MEAN CORPUSCULAR HEMOGLOBIN 29.3 PG (27.0-34.0); MEAN CORPUSCULAR HGB CONC 34.1 % (32.0-36.0); MEAN PLATELET VOLUME 7.7 FL (7.0-11.0); MONOCYTE # 0.7 TH/MM3 (0-0.9); NEUT % 89.7 % (16.0-70.0); PLATELET COUNT 284 TH/MM3 (150-450); RED BLOOD COUNT 5.23 MIL/MM3 (4.00-5.30); RED CELL DISTRIBUTION WIDTH 13.9 % (11.6-17.2); WHITE BLOOD COUNT 14.1 TH/MM3 (4.0-11.0)
[2017-07-23 23:22] LABS: CHLORIDE 109 MEQ/L (98-107); SODIUM (NA) 141 MEQ/L (136-145)
[2017-07-23 23:26] LABS: CALCIUM 9.8 MG/DL (8.5-10.1)
[2017-07-23 23:27] LABS: ALBUMIN 4.5 GM/DL (3.4-5.0); BICARBONATE 24.5 MEQ/L (21.0-32.0); BLOOD UREA NITROGEN 14 MG/DL (7-18); GLUCOSE,RANDOM 93 MG/DL (74-106)
[2017-07-23 23:29] LABS: ALT (GPT) 17 U/L (10-53); AST (GOT) 15 U/L (15-37)
[2017-07-23 23:30] LABS: CREATININE 0.67 MG/DL (0.50-1.00); GLOMERULAR FILTRATION RATE 106 ML/MIN (>89)
[2017-07-23 23:31] LABS: TOTAL BILIRUBIN ADULT 0.6 MG/DL (0.2-1.0); TOTAL PROTEIN 8.7 GM/DL (6.4-8.2)
[2017-07-23 23:32] LABS: ALKALINE PHOSPHATASE 102 U/L (45-117)
[2017-07-23] MEDS ORDERED: SODIUM CHLORID 0.9% 500 ML INJ 500 ML IV ONE (23:45)
[2017-07-23 23:47] VITALS: BP 121/62; PULSE 92; RESP 18; O2SAT 100
[2017-07-24] MEDS ORDERED: METOCLOPRAMIDE HCL 10 MG/2 ML VIAL IV PUSH ONE (00:15)
[2017-07-24] MEDS ORDERED: PROM25TA10 PO (00:21)
[2017-07-24 01:04] VITALS: BP 122/65; PULSE 90; RESP 18; O2SAT 100
== END 2017-07-24 01:06 | disposition home or self-care (01) ==
LOC: PHED 20:50
DX: K52.9 Noninfective gastroenteritis and colitis, unspecified (principal); Z87.891 Personal history of nicotine dependence
CPT/HCPCS: 80053; 81001; 83690; 84703; 85025; 96361; 96374; 96375; 99284; J2405; J2765; J7030; J7040